=== PATIENT | male | born 1975 | race Caucasian/White ===

== ENCOUNTER 2019-04-02 13:51 | Emergency (ER) | payer OTHER ==
[~2019-04-02] VITALS: Ht 172.7 cm; Wt 93.0 kg
[2019-04-02 14:02] VITALS: BP 132/97; Ht 172.7 cm; Wt 93.0 kg
== END 2019-04-02 18:04 | disposition left against medical advice (07) ==
LOC: ED 13:51
DX: Z53.21 Procedure and treatment not carried out due to patient leaving prior to being seen by health care provider (principal)